=== PATIENT | female | born 1955 | race Caucasian/White ===

== ENCOUNTER 2016-06-28 19:17 | Observation (INO) | payer MEDICARE, BC ==
[~2016-06-28] VITALS: Ht 170.2 cm; Wt 82.2 kg
--- NOTE | ~2016-06-28 | HP ---
PATIENT'S NAME: NIKKI ROYAL [facility] AGE: 60 Y [address] ROOM: [place] [address] LOCATION: GPCU ADMIT DATE: 06/28/2016 History & Physical DISCHARGE DATE: FAMILY PHYSICIAN: Charla Sanchez MD ATTENDING PHYSICIAN: JOANA CAMPOS V DATE OF SERVICE: CHIEF COMPLAINT: Not feeling well and fever. HISTORY OF PRESENT ILLNESS: The patient is a 60-year-old female with past medical history of breast cancer, status post mastectomy in 2009 with chemotherapy back then as well, who has mets to her lumbar spine, who was restarted on chemotherapy with Taxotere and Herceptin approximately 10 days ago. The patient presented to the ER today with complaints of generalized malaise as well as unquantified fever at home. In the ER, she was found to have a fever of 103 and an absolute neutrophil count of 200 (0.2). She denies any chest pain, shortness of breath, productive cough, nausea, vomiting, diarrhea, or dysuria. Her only real symptom is fatigue and fever. REVIEW OF SYSTEMS: All systems have been reviewed and are negative except pertinent positives mentioned above. PAST MEDICAL HISTORY: As per HPI. In addition, she has a past medical history of hypercholesterolemia, depression, and hypertension. PAST SURGICAL HISTORY: Significant for prior mastectomy. CURRENT MEDICATIONS: 1. Metoprolol. 2. Crestor. 3. Pristiq. SOCIAL HISTORY: Negative for any toxic habits. FAMILY HISTORY: Reviewed and is noncontributory due to known underlying etiology for her presentation. PATIENT'S NAME: NIKKI ROYAL [facility] AGE: 60 Y [address] ROOM: [place] [address] LOCATION: GPCU ADMIT DATE: 06/28/2016 History & Physical DISCHARGE DATE: FAMILY PHYSICIAN: Charla Sanchez MD ATTENDING PHYSICIAN: JOANA CAMPOS V PHYSICAL EXAMINATION: VITAL SIGNS: Blood pressure is 123/69, temperature 102.7, pulse is 128, respirations are 16, and saturating 92% on room air. GENERAL APPEARANCE: A well-developed, well-nourished, middle-aged female, in no acute distress, nontoxic. NEUROLOGICAL: Nonfocal. EYES: Pupils are equal and reactive to lightheadedness. LYMPHATIC: No cervical lymphadenopathy. ENDOCRINE: No thyromegaly. LUNGS: Clear to auscultation. HEART: Regular rate and rhythm. ABDOMEN: Soft, nontender, nondistended. : No costovertebral angle tenderness. VASCULAR: 2+ pedal pulses. MUSCULOSKELETAL: No muscle or joint abnormalities. SKIN: Significant for a clean-appearing port sites in the left upper thorax. PSYCHIATRIC: Appropriate mood, cognition, and affect. LABORATORY DATA: Studies are significant for a lactate of 2.1. Unremarkable metabolic profile. Negative cardiac enzymes. CBC with white count of 2.5, platelets of 194, hemoglobin of 12.5, and absolute neutrophil count is 200. She has 2% bands. Urinalysis is unremarkable. Chest x-ray is unremarkable. ASSESSMENT AND PLAN: This is a 60-year-old female who will be admitted with, 1. Febrile neutropenia. Given recent chemotherapy and quite depressed neutrophil count, we will put the patient on neutropenia precautions. We will start her on broad-spectrum antibiotics with vancomycin and Zosyn. Cultures have been drawn in the ER, and we will follow those up. 2. History of breast cancer with neutropenia. We will request a Hematology consult to follow on possible Neupogen. The patient has had Neupogen in the past. 3. Hypertension. At this point, we will hold on her antihypertensives given her possible acute infection. 4. Hypercholesterolemia. We will hold off on her lipid-lowering agents. 5. Deep venous thrombosis prophylaxis will be instituted if the patient stays in the hospital for more than 48 hours. Additional management will depend on clinical course. Time dedicated to the patient's encounter is 35 minutes. PATIENT'S NAME: NIKKI ROYAL [facility] AGE: 60 Y [address] ROOM: [address] [address] [facility] ADMIT DATE: 06/28/2016 History & Physical DISCHARGE DATE: FAMILY PHYSICIAN: Charla Sanchez MD ATTENDING PHYSICIAN: JOANA CAMPOS MD AVK/ivanna /[id number] D: [id number] T: [id number] HISTORY & PHYSICAL
--- NOTE | ~2016-06-28 | ER ---
PATIENT'S NAME: NIKKI ROYAL [facility] AGE: 60 Y [address] ROOM: [place] [address] LOCATION: GPCU ADMIT DATE: 06/28/2016 ER/Outpatient Report DISCHARGE DATE: FAMILY PHYSICIAN: Charla Sanchez MD ATTENDING PHYSICIAN: JOANA CAMPOS V Time of Arrival: 1917 hours. Time of Evaluation: 1958 hours. IDENTIFICATION: A 60-year-old female. CHIEF COMPLAINT: Fever. HISTORY OF PRESENT ILLNESS: The patient is a 60-year-old female with a history of breast cancer, followed by Dr. Knutson. Her initial breast cancer was diagnosed in 2009, treated with bilateral mastectomy and chemotherapy, with bone metastasis, and was again started on chemotherapy, received her first dose of Taxol and Herceptin 1 week ago. She did not receive her Doxil at this time. Today, she has a fever of 103 at home. She denies any other symptoms. No dysuria. No increased frequency of urination. She has some chronic back pain and metastatic lesions in the spine. She has no dysuria. No cough. No shortness of breath. No skin rashes. No abdominal pain, nausea, or vomiting. PAST MEDICAL HISTORY: ALLERGIES: TO LEVAQUIN, CAUSES A RASH AND CONTRAST DYE. CURRENT MEDICATIONS: 1. Nexium 40 mg q.a.m. 2. Pristiq 50 mg q.a.m. 3. Potassium 20 mEq q.a.m. 4. Hydrochlorothiazide 12.5 mg q.a.m. 5. Toprol-XL 25 mg q.p.m. 6. Crestor 20 mg q.p.m. 7. Restasis eyedrops. 8. Compazine p.r.n. 9. Doxil every 4 weeks. 10. Zometa every 4 weeks. 11. Percocet p.r.n. 12. Multivitamin. 13. Calcium. PATIENT'S NAME: NIKKI ROYAL [facility] AGE: 60 Y [address] ROOM: [place] [address] LOCATION: GPCU ADMIT DATE: 06/28/2016 ER/Outpatient Report DISCHARGE DATE: FAMILY PHYSICIAN: Charla Sanchez MD ATTENDING PHYSICIAN: KAGANAS,JOANA V 14. B complex. Add magnesium, aspirin, and Imodium p.r.n. MEDICAL PROBLEMS: Infiltrating lobular breast cancer with bone metastasis, hypertension, and hyperlipidemia. PRIOR SURGERIES: Bilateral mastectomy and cervical fusion. SOCIAL HISTORY: The patient is , lives here in [place]. She is retired. Tobacco use, denies. Alcohol use, denies. Drug use, denies. REVIEW OF SYSTEMS: All systems reviewed and negative other than what is noted in the HPI. FAMILY HISTORY: Grandmother with colon cancer. Father with coronary artery disease, status post bypass surgery in his 70s. PHYSICAL EXAMINATION: VITAL SIGNS: Height 5 feet 7 inches, weight 84 kg. Blood pressure 123/69, pulse 128, respirations 16, temperature 102.7, and saturations 92% on room air. GENERAL: A 60-year-old female, in no acute distress. HEENT: Head: Normocephalic, atraumatic. Ears: TMs translucent, both ears. Nose: Mucosa pink. No lesions or drainage. Mouth: No lesions. Pharynx benign. NECK: Supple. No lymphadenopathy. No nuchal rigidity. LUNGS: Clear to auscultation. Breath sounds are equal. No rhonchi, wheezes, or rales. HEART: Regular rate and rhythm. No murmur, rub, or gallop. ABDOMEN: Bowel sounds present. Soft, nondistended. No hepatosplenomegaly. No palpable masses. Nontender. SKIN: [place], warm, and dry. No lesions or rashes noted. The patient has a port in her left upper chest, no surrounding erythema or tenderness. No lower extremity edema. No calf tenderness. LABORATORY DATA AND X-RAYS: Two-view chest x-ray: Port-A-Cath in place in the left chest. No cardiomegaly. Lung patterson essentially clear, although she does maybe have a little hazy bibasilar infiltrate, pending Radiology over-read. UA: Specific gravity 1.010, pH 7, 0 to 2 white cells, negative red cells. Urine culture PATIENT'S NAME: NIKKI ROYAL [facility] AGE: 60 Y [address] ROOM: [place] [address] LOCATION: GPCU ADMIT DATE: 06/28/2016 ER/Outpatient Report DISCHARGE DATE: FAMILY PHYSICIAN: Charla Sanchez MD ATTENDING PHYSICIAN: JOANA CAMPOS V pending. Hemoglobin 12.5, hematocrit 38.1, platelets 194, white count 2.5 with an absolute neutrophil count of 200, 5% segs, 2% bands. INR 1.01. Procalcitonin elevated at 1.05. Sodium 137, potassium 3.8, chloride 102, CO2 of 24, BUN 15, creatinine 1.1, blood sugar 155, AST 45, CPK 96, CK-MB less than 0.5, troponin I less than 0.010. EKG: Sinus tachycardia at 115 beats per minute. Poor anterior R-wave progression. Nonspecific ST-T wave changes. No EKG available for comparison. Lactate 2.1. Saline was started at 150 mL/h. Blood cultures x2 were drawn peripherally and one from her port. IMPRESSION AND PLAN: 1. Neutropenic fever with sepsis. The patient is hemodynamically stable. IV fluids have been initiated, but her blood pressures have been greater than 110 systolic. IV antibiotics were initiated to include Zosyn and vancomycin. Dr. Campos has been consulted for a hospitalist admission, and he did evaluate her here in the emergency room. 2. Breast cancer, currently undergoing chemotherapy. The patient does have bone metastasis. All other medical problems per the past medical history. Due to the patient's bone pain, she does take Percocet for pain and Percocet was given here in the emergency room x1. CALLUM ZAPATA MD CAR/modl /[id number] d: 06/29/16 0542 t: 06/30/16 0142, OUTPATIENT REPORT
[2016-06-28 20:40] LABS: HEMATOCRIT 38.1 % (33.0-46.0); HEMOGLOBIN 12.5 g/dL (10.0-15.0); MCH 28.4 pg (27.0-34.0); MCHC 32.8 gm/dL (32.0-36.5); MCV 86.6 fl (83.0-98.0); MPV 9.7 fl (9.4-12.4); PLATELET COUNT 194 K/uL (150-450); RDW-CV 16.8 % (11.9-14.6); WBC 2.5 K/uL (4.0-11.0)
[2016-06-28 20:50] LABS: INR - (THERAPEUTIC) 1.01 (0.92-1.07); PROTIME 10.6 SECONDS (9.8-11.4); PTT 28 SECONDS (25-32)
[2016-06-28 21:01] LABS: ALBUMIN 3.1 gm/dL (3.5-5.0); ALK PHOS 104 IU/L (33-138); ALT 54 IU/L (12-78); ANION GAP 14.8 (10.0-19.0); AST 45 IU/L (10-40); BLOOD UREA NITROGEN 15 mg/dL (6-24); CALCIUM 8.5 mg/dL (8.5-10.5); CHLORIDE 102 mMol/L (96-110); CO2 24 mMol/L (22-32); CPK 96 IU/L (21-215); CREATININE 1.1 mg/dL (0.5-1.1); ESTIMATED GFR (MDRD EQUATION) 50; POTASSIUM 3.8 mMol/L (3.7-5.1); SODIUM 137 mMol/L (135-145); TOTAL BILIRUBIN 1.3 mg/dL (0.0-1.5); TOTAL PROTEIN 7.5 g/dL (6.0-8.4)
[2016-06-28 21:19] LABS: BILIRUBIN URINE NEGATIVE (NEGATIVE); BLOOD URINE NEGATIVE /UL (NEGATIVE); GLUCOSE URINE NEGATIVE (NEGATIVE); KETONE URINE NEGATIVE (NEGATIVE); LEUKOCYTES URINE 25 /UL (NEGATIVE); NITRITE URINE NEGATIVE (NEGATIVE); PROTEIN URINE 30 mg/dL (NEGATIVE); UROBILINOGEN URINE 1 mg/dL (NORMAL)
[2016-06-28 21:26] LABS: ABSOLUTE NEUTROPHIL CT (ANC) 0.2 K/uL (1.8-7.8); BANDED NEUTROPHIL # 0.1 K/uL (0.0-0.1); BANDED NEUTROPHILS % 2 %; LYMPHOCYTE # 1.2 K/uL (0.8-4.0); LYMPHOCYTE % 47 %; MONOCYTE # 1.1 K/uL (0.0-1.0); SEGMENTED NEUTROPHIL # 0.1 K/uL (1.8-7.8); SEGMENTED NEUTROPHIL % 5 %
[2016-06-28 21:29] LABS: COLOR URINE YELLOW (YELLOW); TURBIDITY URINE CLEAR (CLEAR)
[2016-06-28 21:41] LABS: BACTERIA URINE NEGATIVE (NEGATIVE); EPITHELIAL URINE RARE #/HPF (NEGATIVE); MUCUS URINE NEGATIVE (NEGATIVE); RBC URINE NEGATIVE #/HPF (NEGATIVE); WBC URINE 0-2 #/HPF (NEGATIVE)
[2016-06-28] MEDS ORDERED: NEXIUM40 MG PO (23:31)
[2016-06-28] MEDS ORDERED: PRISTIQ 50 MG E50 MG PO (23:31)
[2016-06-28] MEDS ORDERED: K-TAB 10MEQ10 MEQ PO (23:32)
[2016-06-28] MEDS ORDERED: HYDRODIURIL12.5 MG PO (23:35)
[2016-06-28] MEDS ORDERED: TOPROL XL25 MG PO (23:35)
[2016-06-28] MEDS ORDERED: CRESTOR20 MG PO (23:35)
[2016-06-28] MEDS ORDERED: PERCOCET 5-3251 EACH PO (23:37)
[2016-06-28] MEDS ORDERED: COMPAZINE10 MG PO (23:37)
[2016-06-28] MEDS ORDERED: RESTASIS MULTI5.5 ML OPHTH (23:37)
[2016-06-28] MEDS ORDERED: DAILY MULTIPLE1 EAC1 PO (23:38)
[2016-06-28] MEDS ORDERED: CALCIUM + VITA1 EACH PO (23:39)
[2016-06-28] MEDS ORDERED: ALIGN4 MG PO (23:40)
[2016-06-28] MEDS ORDERED: B COMPLEX1 EACH PO (23:40)
[2016-06-28] MEDS ORDERED: MAG-OX-400(241400 MG PO (23:42)
[2016-06-28] MEDS ORDERED: ASPIRIN LO-DOSE81 MG PO (23:43)
[2016-06-28] MEDS ORDERED: IMODIUM2 MG PO (23:44)
--- NOTE | 2016-06-29 01:23 | NUR ---
PATIENT ARRIVED TO PCU AROUND 2245 FROM ER. PATIENT PRESENTED TO ER THIS EVENING WITH C/O OF A 103.0 TEMP. PATIENT A/0X3. SBA UP TO BR. 100.0 TEMP UPON ARRIVAL TO THE FLOOR. HR 110'S. 95 % ON RA. 106/55. STILL HAVING C/O OF BACK PAIN. PATIENT WAS PREVIOUSLY MEDICATED IN THE ER BEFORE COMING UP. DOCTOR SAW PATIENT IN ER AND WROTE ORDERS. TO FOLLOW SEPSIS ORDERS. START IV ZOSYN AND VANCO.
--- NOTE | 2016-06-29 04:01 | NUR ---
Significant Event: A/0X3. RESTED IN BED ALL OF SHIFT. TURNS SELF. SBA UP TO BR. HAD A MAX TEMP OF 100.0 UPON ARRIVAL TO THE FLOOR. TYLENOL GIVEN AROUND 2337 AND PATIENT HAS BEEN AFEBRILE SINCE.VSS ON RA. PERCOCET GIVEN AT 2230 FOR CHRONIC BACK PAIN. PATIENT WAS ABLE TO FIND SOME RELIEF AND REST OFF AND ON THROUGHOUT THE SHIFT. IV TO L) CHEST HAS NS @ 100 ML/H RUNNING. STARTED IV VANCO AND ZOSYN. VOIDS FINE. NO BM THIS SHIFT. Follow up: CONTINUE WITH PLAN OF CARE. NEED A SPUTUM CULTURE.
[2016-06-29 04:55] LABS: ANION GAP 9.5 (10.0-19.0); BLOOD UREA NITROGEN 13 mg/dL (6-24); CALCIUM 8.6 mg/dL (8.5-10.5); CHLORIDE 108 mMol/L (96-110); CO2 27 mMol/L (22-32); CREATININE 0.9 mg/dL (0.5-1.1); ESTIMATED GFR (MDRD EQUATION) > 60; MAGNESIUM 2.2 mg/dL (1.8-2.6); PHOSPHORUS 3.4 mg/dL (2.5-4.9); POTASSIUM 3.5 mMol/L (3.7-5.1); SODIUM 141 mMol/L (135-145)
[2016-06-29 05:05] LABS: HEMATOCRIT 34.9 % (33.0-46.0); HEMOGLOBIN 11.3 g/dL (10.0-15.0); MCH 28.4 pg (27.0-34.0); MCHC 32.4 gm/dL (32.0-36.5); MCV 87.7 fl (83.0-98.0); MPV 9.9 fl (9.4-12.4); PLATELET COUNT 168 K/uL (150-450); RBC 3.98 M/uL (3.50-5.50); RDW-CV 16.9 % (11.9-14.6)
[2016-06-29 06:03] LABS: ABSOLUTE NEUTROPHIL CT (ANC) 0.2 K/uL (1.8-7.8); LYMPHOCYTE # 1.8 K/uL (0.8-4.0); LYMPHOCYTE % 60 %; MONOCYTE # 0.9 K/uL (0.0-1.0); SEGMENTED NEUTROPHIL # 0.2 K/uL (1.8-7.8); SEGMENTED NEUTROPHIL % 8 %
--- NOTE | 2016-06-29 16:16 | NUR ---
Significant Event:Patient has been afebrile today. Up in room. Overall feeling better. Percocet twice for c/o chronic back pain. Appetite pretty good. Clarified home medications. Started on Lovenox. Neutropenic precautions. Follow up:Continue IV antibiotics
[2016-06-30 02:35] LABS: ALBUMIN 2.4 gm/dL (3.5-5.0); ANION GAP 8.8 (10.0-19.0); BLOOD UREA NITROGEN 15 mg/dL (6-24); CALCIUM 8.5 mg/dL (8.5-10.5); CHLORIDE 112 mMol/L (96-110); CO2 26 mMol/L (22-32); CREATININE 0.8 mg/dL (0.5-1.1); ESTIMATED GFR (MDRD EQUATION) > 60; PHOSPHORUS 2.9 mg/dL (2.5-4.9); POTASSIUM 3.8 mMol/L (3.7-5.1); SODIUM 143 mMol/L (135-145)
[2016-06-30 02:48] LABS: HEMATOCRIT 32.7 % (33.0-46.0); HEMOGLOBIN 10.3 g/dL (10.0-15.0); MCH 28.5 pg (27.0-34.0); MCHC 31.5 gm/dL (32.0-36.5); MCV 90.6 fl (83.0-98.0); MPV 10.9 fl (9.4-12.4); PLATELET COUNT 168 K/uL (150-450); RBC 3.61 M/uL (3.50-5.50); RDW-CV 16.9 % (11.9-14.6); WBC 3.9 K/uL (4.0-11.0)
--- NOTE | 2016-06-30 03:09 | NUR ---
Significant Event: A/0X3. UP AB KARL IN ROOM. TURNS SELF. AFEBRILE. VSS ON RA. PERCOCET GIVEN X1. LAST DOSE WAS AT 2006. PATIENT WAS ABLE TO FIND RELIEF AND REST OFF AND ON THROUGHOUT THE SHIFT. PORT TO L) CHEST WITH NS @ 100 ML/H. CONTINUE WITH IV ANTIBIOTICS. VOIDS FINE. NO BM THIS SHIFT. Follow up: CONTINUE WITH PLAN OF CARE.
[2016-06-30 04:14] LABS: ABSOLUTE NEUTROPHIL CT (ANC) 0.7 K/uL (1.8-7.8); BANDED NEUTROPHIL # 0.1 K/uL (0.0-0.1); BANDED NEUTROPHILS % 2 %; LYMPHOCYTE # 2.1 K/uL (0.8-4.0); MONOCYTE # 0.9 K/uL (0.0-1.0); SEGMENTED NEUTROPHIL # 0.6 K/uL (1.8-7.8); SEGMENTED NEUTROPHIL % 15 %
[2016-06-30 04:15] LABS: LYMPHOCYTE % 53 %
[2016-06-30] MEDS ORDERED: PROTONIX40 MG PO (12:04)
[2016-06-30] MEDS ORDERED: CLEOCIN150 MG PO (12:12)
--- NOTE | 2016-06-30 13:37 | NUR ---
Introduced self and care management services to patient. Lives in [place] with spouse. Going home today. Denies concerns about going home on discharge, spouse will assist at home as needed. Will follow.
--- NOTE | 2016-06-30 14:22 | NUR ---
PATIENT A&O THIS SHIFT. NO C/O N/V/D. STATES SHE HAS CHRONIC BACK PAIN BUT IT IS TOLERABLE, DENIES NEED FOR PAIN MEDICATION. PATIENT HAS MORNING DOSE OF ZOSYN AND HAD MAINTENANCE FLUIDS RUNNING AT 100ML/HR NS UP UNTIL D/C. UP AMBULATING AD KARL, TOLERATES ACTIVITY WELL. PORT WAS FLUSHED WITH 10ML NS AND 5ML OF HEPARIN THEN WAS DEACCESSED AND SITE COVERED WITH A BANDAGE. PATIENT D/C FROM HOSPITAL AND TAKEN BY WHEELCHAIR TO PRIVATE CAR.
--- NOTE | 2016-07-02 13:02 | NUR ---
Post hospitalization follow up call made to patient. She reports that she is very tired, however, feels she is doing "better". She has no questions regarding her medications or follow up appointments. She see Dr. Knutson on July 10 and it will then be determined if she will continue with chemotherapy. Patient felt her hospitaization went well.
== END 2016-06-30 13:25 | disposition disaster alternative care site (69) ==
LOC: GMED 19:17 → GPCU 21:53
PROVIDERS: Family Medicine; ADMIT Internal Medicine
DX: D70.9 Neutropenia, unspecified (principal); R50.81 Fever presenting with conditions classified elsewhere; R65.10 Systemic inflammatory response syndrome (SIRS) of non-infectious origin without acute organ dysfunction; C79.51 Secondary malignant neoplasm of bone; I10 Essential (primary) hypertension; E78.00 Pure hypercholesterolemia, unspecified; F32.9 Major depressive disorder, single episode, unspecified; Z90.10 Acquired absence of unspecified breast and nipple; Z85.3 Personal history of malignant neoplasm of breast; Z88.1 Allergy status to other antibiotic agents
CPT/HCPCS: G0378; J1642; J1650; J2543; J3370; J7030

== ENCOUNTER → 2016-08-22 | Outpatient (CLI) | payer BC, MEDICARE ==
[~2016-08-22] MED LIST: ALIGN4 MG PO; ASPIRIN LO-DOSE81 MG PO; ATIVAN 0.5MG0.5 MG SL; B COMPLEX1 EACH PO; CALCIUM + VITA1 EACH PO; CLEOCIN150 MG PO; COMPAZINE10 MG PO; CRESTOR20 MG PO; DAILY MULTIPLE1 EAC1 PO; DECADRON4 MG PO; HYDRODIURIL12.5 MG PO; IMODIUM2 MG PO; K-TAB 10MEQ10 MEQ PO; LEVSIN/SL0.125 MG SL; MAG-OX-400(241400 MG PO; MORPHINE 20MG/ML PO/SUBLING; NEXIUM40 MG PO; PERCOCET 5-3251 EACH PO; PRISTIQ 50 MG E50 MG PO; PROTONIX40 MG PO; RESTASIS MULTI5.5 ML OPHTH; TOPROL XL25 MG PO
== END | disposition disaster alternative care site (69) ==
LOC: GRAD 13:38
DX: R51 Headache (principal); R11.0 Nausea; R26.81 Unsteadiness on feet
CPT/HCPCS: A9577

== ENCOUNTER → 2016-08-25 | Outpatient (CLI) | payer BC, MEDICARE | END | disposition disaster alternative care site (69) | LOC: GKIC 10:03 | DX: C50.511 Malignant neoplasm of lower-outer quadrant of right female breast (principal); C79.51 Secondary malignant neoplasm of bone; D64.81 Anemia due to antineoplastic chemotherapy; M54.14 Radiculopathy, thoracic region; D61.810 Antineoplastic chemotherapy induced pancytopenia; D70.8 Other neutropenia; E87.6 Hypokalemia; R11.2 Nausea with vomiting, unspecified | CPT/HCPCS: A9552 ==

== ENCOUNTER 2016-08-29 11:20 | Day surgery (SDC) | payer BC, MEDICARE ==
[~2016-08-29] VITALS: Ht 170.2 cm; Wt 81.0 kg
--- NOTE | ~2016-08-29 | OR ---
PATIENT'S NAME: NIKKI ROYAL [facility] AGE: 61 Y [address] ROOM: [place] [address] LOCATION: [facility] ADMIT DATE: 08/29/2016 OR/Procedure Report DISCHARGE DATE: 08/30/2016 FAMILY PHYSICIAN: Charla Sanchez MD ATTENDING PHYSICIAN: Mireya Pond SURGEON: Mireya Pond MD PRODUCTION LINE WORKER: Gris Covarrubias. DATE OF PROCEDURE: 08/29/2016 PREOPERATIVE DIAGNOSIS: Meningeal carcinomatosis. POSTOPERATIVE DIAGNOSIS: Meningeal carcinomatosis. PROCEDURE PERFORMED: Placement of right-sided Ommaya reservoir. ANESTHESIA: General. HISTORY: The patient is a 61-year-old female with metastatic breast cancer to the meninges. The patient's oncologist requested an Ommaya reservoir to assist with intrathecal chemotherapy. I saw the patient in the clinic and I went over the procedure, benefits, and risks with her. With her consent, she was brought to the operating room for surgery. PROCEDURE IN DETAIL: In the operating room, the patient was placed in a supine position. Anesthesia was induced and she was intubated. The hair on the right side of her head was clipped. The entry point for the Ommaya reservoir was marked out at 12.5 cm behind the right midpupillary line. A horseshoe incision was made with this landmark in the middle. The whole area was prepped and draped in a sterile fashion. Local anesthesia was infiltrated. The #10 blade was used to open the scalp. The scalp flap was held back. Meridian hole was placed and the dura was coagulated. The dura was incised. The ventricular catheter was inserted and the ventricle was accessed at first try. Spinal fluid was retrieved. Spinal fluid was blood tinged. Spinal fluid was sent for appropriate tests as requested by the oncologist. The Ommaya reservoir was then attached to the ventricular catheter, which had been trimmed to a length of 6 cm. The catheter and the reservoir were tied together. The incision was then closed with appropriate suture materials and a sterile dressing was applied. The patient's anesthesia was reversed. She was extubated and taken to the recovery room to complete her recovery. I was present for and performed the entire procedure, assisted at different stages by operating room nurses. There were no apparent intraoperative complications. Swabs, needles, and instruments were all accounted for at the end of the case. Estimated blood loss was less than 10 mL. There was no reason for blood transfusion. Postoperative CT scan confirmed that the catheter was in the correct position in the frontal horn of the left lateral PATIENT'S NAME: NIKKI ROYAL [facility] AGE: 61 Y [address] ROOM: [place] [address] LOCATION: [facility] ADMIT DATE: 08/29/2016 OR/Procedure Report DISCHARGE DATE: 08/30/2016 FAMILY PHYSICIAN: Charla Sanchez MD ATTENDING PHYSICIAN: Mireya Pond ventricle. The catheter should now be available for use. MIREYA POND MD CNO/modl /[id number] CC: Claribel Knutson MD d: 09/02/16 2342 t: 09/03/16 1948, OPERATIVE SUMMARY
[~2016-08-29 11:20] MED LIST changes: -ATIVAN 0.5MG0.5 MG SL; -DECADRON4 MG PO; -LEVSIN/SL0.125 MG SL; -MORPHINE 20MG/ML PO/SUBLING
--- NOTE | 2016-08-29 13:32 | NUR ---
PATIENT REPORTS HAVING LESS PAIN AFTER RX GIVEN. RATES A 4 NOW WHEN IT WAS A 6 EARLIER. PAIN REPORTED IN MIDDLE BACK
--- NOTE | 2016-08-30 04:53 | NUR ---
Pt. alert and oriented. VSS. RA. SBA. Regular diet. Pt. pulled IV out at end of shift. States is going home and does not want another IV before d/c. Dressing on top of head from resevoir placed yesterday. No issues. Gave 2 tabs percocet x1 around 0000. Pt. did not sleep much but said this was normal. Took shower at 0430. Plans to discharge today but needs teaching on how to care for resevoir.
[2016-08-30] MEDS ORDERED: DECADRON4 MG PO (11:36)
--- NOTE | 2016-08-30 12:46 | NUR ---
Educated on medications, followup appointments, blood clots. IV had been accidentally d/c'd by patient in the night. Taken by wheelchair to main lobby for discharge home with family with all personal belongings.
== END 2016-08-30 12:39 | disposition disaster alternative care site (69) ==
LOC: GMSU 11:20 → GSDC 11:20
PROC: 00H603Z Insertion of Infusion Device into Cerebral Ventricle, Open Approach (ICD-10-PCS; principal; 2016-08-29)
DX: C79.32 Secondary malignant neoplasm of cerebral meninges (principal); C50.911 Malignant neoplasm of unspecified site of right female breast; I25.10 Atherosclerotic heart disease of native coronary artery without angina pectoris; F32.9 Major depressive disorder, single episode, unspecified; H04.123 Dry eye syndrome of bilateral lacrimal glands; K21.9 Gastro-esophageal reflux disease without esophagitis; E78.5 Hyperlipidemia, unspecified; E04.1 Nontoxic single thyroid nodule; N19 Unspecified kidney failure; F41.9 Anxiety disorder, unspecified; E78.00 Pure hypercholesterolemia, unspecified; I10 Essential (primary) hypertension; Z90.13 Acquired absence of bilateral breasts and nipples; Z98.890 Other specified postprocedural states; Z79.82 Long term (current) use of aspirin; Z79.899 Other long term (current) drug therapy; Z91.041 Radiographic dye allergy status; Z88.1 Allergy status to other antibiotic agents
CPT/HCPCS: J0690; J1100; J2001; J2250; J2405; J3010; J7030

== ENCOUNTER → 2016-09-02 | Outpatient (CLI) | payer BC, MEDICARE ==
[~2016-09-02] MED LIST changes: +ATIVAN 0.5MG0.5 MG SL; +DECADRON4 MG PO; +LEVSIN/SL0.125 MG SL; +MORPHINE 20MG/ML PO/SUBLING
== END | disposition disaster alternative care site (69) ==
LOC: GRAD 15:00
DX: C50.511 Malignant neoplasm of lower-outer quadrant of right female breast (principal); C79.51 Secondary malignant neoplasm of bone; D64.81 Anemia due to antineoplastic chemotherapy; M54.14 Radiculopathy, thoracic region; D61.810 Antineoplastic chemotherapy induced pancytopenia; E87.6 Hypokalemia; R11.2 Nausea with vomiting, unspecified; Z98.890 Other specified postprocedural states; M47.892 Other spondylosis, cervical region; M48.02 Spinal stenosis, cervical region; M51.24 Other intervertebral disc displacement, thoracic region; M47.897 Other spondylosis, lumbosacral region
CPT/HCPCS: A9577

== ENCOUNTER 2016-09-07 08:55 | Inpatient (IN) | payer MEDICARE, BC ==
[~2016-09-07] VITALS: Ht 172.7 cm; Wt 78.9 kg
--- NOTE | ~2016-09-07 | CON ---
PATIENT'S NAME: NIKKI ROYAL [facility] AGE: 61 Y [address] ROOM: [place] [address] LOCATION: [facility] ADMIT DATE: 09/07/2016 Consultation DISCHARGE DATE: FAMILY PHYSICIAN: Charla Sanchez MD ATTENDING PHYSICIAN: Mireya Reinoso DATE OF CONSULTATION: 09/08/2016 REFERRING PHYSICIAN: Mireya Reinoso MD LOCATION: [place] [address]. REASON: This is a palliative care referral for end-of-life cares and transitioning to home with hospice. HISTORY OF PRESENT ILLNESS: This 61-year-old female was brought into the emergency room on 09/07 with decreased level of consciousness and declining. She has a known history of metastatic breast cancer with metastasis to the bone when diagnosed 7 years ago, was treated for her breast cancer, started having more back pain, went back in, was checked out. She had extensive leptomeningeal involvement as a result of her metastatic breast cancer with metastasis to the brain. She had an Ommaya reservoir placed on August 29 and had 2 doses of intrathecal chemotherapy from her Ommaya reservoir. After second treatment, the patient had started becoming more dizzy and declining overall. She had been declining over the last 3 months with decreased appetite, back pain, and some nausea after the first treatment. Currently, the patient is unresponsive. Opens eyes, but no response to verbal or tactile stimuli. No grimacing or moaning noted. She is n.p.o. No nausea or vomiting. Unknown last bowel movement. PAST MEDICAL HISTORY: Breast cancer, history of GERD, hyperlipidemia, depression, and nonocclusive coronary artery disease. HOME MEDICATIONS: 1. Nexium. 2. Pristiq. 3. Hydrochlorothiazide. 4. Crestor. 5. Compazine. 6. Zometa. PATIENT'S NAME: NIKKI ROYAL [facility] AGE: 61 Y [address] ROOM: [place] [address] LOCATION: [facility] ADMIT DATE: 09/07/2016 Consultation DISCHARGE DATE: FAMILY PHYSICIAN: Charla Sanchez MD ATTENDING PHYSICIAN: Mireya Reinoso 7. Percocet. 8. Calcium. 9. Recently started on methotrexate. ALLERGIES: LEVAQUIN. SOCIAL HISTORY: She is , retired. She has one son and one daughter. Son lives in [place]. Daughter lives by [place]. No history of alcohol, tobacco, or illicit drug use. FAMILY HISTORY: Father had heart disease. Mother had Alzheimer's. Sister had cervical cancer. Brother at the age of 72, and another brother had spinal stenosis. PAST SURGICAL HISTORY: PowerPort implant, Ommaya reservoir on 08/29/2016, right mastectomy, left mastectomy, and cervical disk fusion. REVIEW OF SYSTEMS: A complete review of systems was done and is negative except as mentioned in the HPI. PHYSICAL EXAMINATION: GENERAL: This is a 61-year-old female in no acute distress. She is 5 feet 8 inches and weighs 173 pounds with a BMI of 26.4. GENERAL: Unresponsive, in no acute distress. HEENT: Head is normocephalic, shaved. Sutures intact around Ommaya reservoir on the top of head. No redness. No erythema or drainage noted. Sclerae are nonicteric. Conjunctivae are pale, pink. Mouth is pink and moist without exudate. LYMPHATIC: No cervical adenopathy or thyromegaly. RESPIRATORY: Clear to auscultation bilaterally. Breath sounds even and regular throughout. CARDIAC: S1 and S2, without murmurs or bruits. No lower extremity edema. ABDOMEN: Soft and nontender. Positive bowel tones. No hepatosplenomegaly. NEUROLOGIC: Unresponsive, not following commands. MUSCULOSKELETAL: No joint deformities. EXTREMITIES: No cyanosis or deformities. Palliative Performance Scale is about 10%, totally bed-bound, unable to do any activity, total care, mouth care only, and conscious level is coma. IMPRESSION: PATIENT'S NAME: NIKKI ROYAL [facility] AGE: 61 Y [address] ROOM: [place] [address] LOCATION: [facility] ADMIT DATE: 09/07/2016 Consultation DISCHARGE DATE: FAMILY PHYSICIAN: Charla Sanchez MD ATTENDING PHYSICIAN: Mireya Reinoso 1. Back pain. 2. Altered level of consciousness. PLAN: 1. Met with Vadim, daughter Lisette, and son Kevyn and his Alivia. Discussed the patient's overall condition, prognosis, and hospice. Answered questions and concerns. 2. Goals of care. would like to take the patient home with hospice as soon as possible today. He wants the patient to be as comfortable as possible. 3. Discussed support systems in place. [facility] escrow representative will be up to talk with family around 1115 hours to help set up plan of transitioning back home. Discussed that the patient may have to go per ambulance due to being unresponsive. understands. 4. Code status and advance directive. The patient is do not resuscitate/do not intubate. A copy of advance directive is on the chart. 5. Recommendations: Pain, the patient has been taking morphine 2 mg IV x2 in the last 12 hours, Roxanol 20 mg/mL 5 mg p.o., script will be sent home with the patient. Should be sufficient in managing pain. Emotionalsupport given to family. Answered all questions and concerns. Discussed with daycare teacher, PIPER Aleman, on possible ambulance transfer home approximately at 1530 hours. [facility] will arrange getting equipment in place. Comfort care orders were signed and faxed back to [facility]. Thank you for allowing me to assist this patient and family. Total time was 60 minutes, with 55 minutes for counseling and coordination of care. ELSA LYMAN NP FOR MD STEPHEN MOLINA/ivanna /[id number] d: 09/08/16 1506 t: 09/10/16 1558, CONSULTATION REPORT
--- NOTE | ~2016-09-07 | HP ---
PATIENT'S NAME: NIKKI RODGERS [facility] AGE: 61 Y [address] ROOM: [place] [address] LOCATION: [facility] [place] ADMIT DATE: 09/07/2016 History & Physical DISCHARGE DATE: FAMILY PHYSICIAN: Charla Sanchez MD ATTENDING PHYSICIAN: Mireya Pond DATE OF SERVICE: 09/07/2016 PATIENT IDENTIFICATION: Nikki Rodgers is a 61-year-old female. PRESENTING COMPLAINT: Decreased responsiveness. HISTORY OF PRESENT ILLNESS: The patient has had decreased level of consciousness since yesterday afternoon. The family brought her to the ER today. She had a head CT scan done and it showed hydrocephalus, see below. I was therefore consulted to see the patient. The patient is known to have metastatic breast cancer to the brain. She has extensive leptomeningeal involvement. As a result of the metastatic breast cancer to the brain, the patient had an Ommaya reservoir placed on August 29, 2016. She has had two doses of intrathecal chemotherapy from the Ommaya reservoir. She has been having worsening dizziness over the last 3 months as well as headache. PAST MEDICAL HISTORY: Significant for the said breast cancer. She also has a history of gastroesophageal reflux disease, hyperlipidemia, depression, nonocclusive coronary artery disease. CURRENT MEDICATIONS: Nexium, Pristiq, hydrochlorothiazide, Crestor, Compazine, Zometa, Percocet, calcium, and recently started on methotrexate. ALLERGIES: LEVAQUIN. SOCIAL HISTORY: The patient is . She is retired. She does not use tobacco or alcohol or street drugs. PATIENT'S NAME: NIKKI RODGERS [facility] AGE: 61 Y [address] ROOM: [place] [address] LOCATION: [facility] [place] ADMIT DATE: 09/07/2016 History & Physical DISCHARGE DATE: FAMILY PHYSICIAN: Charla Sanchez MD ATTENDING PHYSICIAN: Mireya Pond FAMILY HISTORY: There is no family history relevant to present problems. REVIEW OF SYSTEMS: Unable to obtain review of systems, as the patient is currently not responsive enough to provide one. PHYSICAL EXAMINATION: GENERAL: The patient is a middle-aged white female, who was seen in the ER. VITAL SIGNS: Blood pressure 147/78, pulse rate 91. NEUROLOGICAL: The patient was very drowsy when I saw her. It took a bit of effort to get her to open her eyes to voice. She did not follow command, but did not have any verbal response. Cranial nerves unable to assess, but no gross deficits seen. Motor examination unable to assess. BREATHING: The patient is breathing spontaneously on her own. CARDIOVASCULAR: Heart sounds are present. EXTREMITIES: No cyanosis or clubbing. HEAD: There is a fresh Ommaya reservoir incision on the top of her head. EYES, EARS, NOSE, and THROAT: No evidence of trauma. REVIEW OF IMAGING STUDIES: The patient had a recent head CT scan performed this morning. The CT scan shows worsening of the known hydrocephalus, although the patient has been diagnosed with. There is no bleeding or midline shift. ASSESSMENT: A 61-year-old female with hydrocephalus secondary to metastatic breast cancer, presenting with decreased level of responsiveness. MEDICAL DECISION MAKING: I discussed the situation with the patient's family. I presented to them options of either doing a spinal tap to relieve the hydrocephalus temporarily, a ventriculoperitoneal shunt for the hydrocephalus, again this will be temporary with possibility of spreading malignant cells to the abdomen. Another option was Comfort Care is accepting that this was a terminal event. After discussions among themselves, the patient's family opted for comfort care. The patient is being admitted for comfort care at this time. She is also do not resuscitate. MIREYA POND MD PATIENT'S NAME: NIKKI RODGERS [facility] AGE: 61 Y [address] ROOM: [place] [address] LOCATION: [facility] [place] ADMIT DATE: 09/07/2016 History & Physical DISCHARGE DATE: FAMILY PHYSICIAN: Charla Sanchez MD ATTENDING PHYSICIAN: Mireya Pond/ivanna /[id number] CC: MD Claribel Noguera MD D: [id number] T: [id number] HISTORY & PHYSICAL
--- NOTE | ~2016-09-07 | ER ---
PATIENT'S NAME: NIKKI ROYAL [facility] AGE: 61 Y [address] ROOM: [place] [address] LOCATION: [facility] [place] ADMIT DATE: 09/07/2016 ER/Outpatient Report DISCHARGE DATE: FAMILY PHYSICIAN: Charla Sanchez MD ATTENDING PHYSICIAN: Mireya Reinoso Time of arrival: 0855 hours. Time of evaluation: 0855 hours. CHIEF COMPLAINT: Unresponsive. HISTORY OF PRESENT ILLNESS: The patient is a 61-year-old female, who presents to the emergency department today with a chief complaint of unresponsiveness. The patient does have a history of metastatic breast cancer with METS to the bone as well as a recent diagnosis of carcinomatosis and meningitis. The patient recently underwent Ommaya implantation by Dr. Reinoso. She did receive intrathecal methotrexate, last dose was on 09/04/2016. Per , the patient's symptoms has progressively worsened over the past 24-36 hours. She has become less and less responsive. denies any fevers or chills. No nausea or vomiting. No diarrhea or constipation. No chest pain. No shortness of breath. Upon EMS arrival, the patient was noted to be hypoxic with a room air oxygen saturation of 85%. PAST MEDICAL HISTORY: Breast cancer with metastasis, carcinomatosis, meningitis, hypertension, dyslipidemia, mastectomy, cervical fusion. SOCIAL HISTORY: The patient is , lives in [place], retired. Denies any tobacco, alcohol, or illicit drug use. ALLERGIES: TO LEVAQUIN WHICH CAUSES A RASH WELL CONTRAST DYE. MEDICATIONS: 1. Nexium. 2. Pristiq. 3. Potassium. 4. Hydrochlorothiazide. 5. Toprol-XL. 6. Crestor. 7. Restasis. 8. Compazine. PATIENT'S NAME: NIKKI ROYAL [facility] AGE: 61 Y [address] ROOM: [place] [address] LOCATION: [facility] [place] ADMIT DATE: 09/07/2016 ER/Outpatient Report DISCHARGE DATE: FAMILY PHYSICIAN: Charla Sanchez MD ATTENDING PHYSICIAN: Mireya Reinoso 9. Doxil. 10. Zometa. 11. Percocet. 12. Multivitamin. 13. Calcium. 14. B complex. REVIEW OF SYSTEMS: All systems are unable to be reviewed due to the patient's unresponsive condition at this time. PHYSICAL EXAMINATION: VITAL SIGNS: Weight 79.2 kg. Blood pressure 147/78, pulse 91, respiratory rate 14, temperature 98.7, oxygen saturation 95% on 2 L nasal cannula. GENERAL: The patient is a 61-year-old female, who is minimally responsive, maintaining her own airway. HEENT: Head: Normocephalic, atraumatic. Pupils are 3 mm and reactive. She does have lateral gaze to the left. Oropharynx is dry. The patient does have Ommaya pump noted with sutures in place at the top of the scalp. NECK: Supple. There is no nuchal rigidity. CARDIOVASCULAR: Regular rate and rhythm. LUNGS: Clear to auscultation bilaterally. ABDOMEN: Soft, nontender, and nondistended. No rebound, rigidity, or guarding. MUSCULOSKELETAL: The patient does not move extremities. Her upper extremities are with some contracture noted at the wrist and some fasciculation type movements. NEUROLOGICAL: GCS of E2, V1, Motor 5. Does not follow commands. Downward going toes. No clonus. SKIN: Warm and dry. LABORATORY DATA AND X-RAYS: Labs and x-rays are obtained. CT scan of the brain is obtained. I have discussed the results with the radiologist. It does show obstructive hydrocephalus with moderate ventriculomegaly, appears to be from compression of 4th ventricle, likely metastatic progression, progressive from one month prior. Chest x-ray shows patchy bilateral lung opacifications, probably atelectasis with no evidence of failure or definitive pneumonia. CBC is unremarkable except for platelet 145, proBNP is 172. Venous blood gas 7.43/39/56/26/1.5. Lactate is 1.5, procalcitonin 0.36. Coags are normal. CMP is unremarkable except for potassium 3.2. LFTs normal. CK is normal. Cardiac enzymes are normal. EKG is obtained, is interpreted by myself at 09:32 shows sinus rhythm with a rate of 90, normal axis, normal interval. No ST elevation or ST depression. Nonspecific T-waves. Urinalysis shows 30 protein, 5 ketones, rare WBCs, negative RBCs, epithelials, and bacteria. PATIENT'S NAME: NIKKI ROYAL [facility] AGE: 61 Y [address] ROOM: [address] [address] LOCATION: [facility] [place] ADMIT DATE: 09/07/2016 ER/Outpatient Report DISCHARGE DATE: FAMILY PHYSICIAN: Charla Sanchez MD ATTENDING PHYSICIAN: Mireya Reinoso IMPRESSION: 1. Obstructive hydrocephalus with moderate ventriculomegaly from compression of the 4th ventricle, likely progressive metastatic disease. 2. Breast cancer with metastasis to bone and brain. 3. Altered mental status due to #1. 4. Initial visit. EMERGENCY DEPARTMENT COURSE: The patient was brought back to the examination room. Seen and evaluated by myself immediately upon arrival. The patient's port is accessed. She is given a liter of normal saline. Laboratory analysis and imaging are obtained as described above. The results of the imaging and laboratory analysis are obtained. I have discussed results with the family. I have contacted Dr. Reinoso with Neurosurgery. He has seen and evaluated the patient down here in the emergency department. After discussion with Dr. Reinoso, the patient's family does wish to make the patient comfort care. The patient will be admitted for palliative care. DISPOSITION: The patient is admitted under the care Dr. Reinoso in guarded condition. DO JUAN MANUEL DAY/benitol /[id number] d: 09/07/16 1621 t: 09/08/16 1608, OUTPATIENT REPORT
[~2016-09-07 08:55] MED LIST changes: -ATIVAN 0.5MG0.5 MG SL; -LEVSIN/SL0.125 MG SL; -MORPHINE 20MG/ML PO/SUBLING
[2016-09-07 09:24] LABS: BASOPHIL % 0.1 %; BICARBONATE 25.9 mmol/L (18.0-23.0); EOSINOPHIL % 0.1 %; IMMATURE GRANULOCYTE % 0.3 %; LACTATE 1.5 mEq/L (0.50-1.60); LYMPHOCYTE # 0.5 K/uL (0.8-4.0); LYMPHOCYTE % 4.6 %; MCH 30.8 pg (27.0-34.0); MCV 93.6 fl (83.0-98.0); MONOCYTE # 0.4 K/uL (0.0-1.0); MONOCYTE % 3.3 %; MPV 9.4 fl (9.4-12.4); NEUTROPHIL # (ANC) 9.7 K/uL (1.8-7.8); NEUTROPHIL % 91.6 %; NRBC % 0 /100WBC (0-0.00); PCO2 39 mmHg (35-45); PLATELET COUNT 145 K/uL (150-450); PO2 56 mmHg (80-90); RBC 4.22 M/uL (3.50-5.50); WBC 10.6 K/uL (4.0-11.0)
[2016-09-07 09:28] LABS: HEMATOCRIT 39.5 % (33.0-46.0); MCHC 32.9 gm/dL (32.0-36.5); RDW-CV 19.6 % (11.9-14.6)
[2016-09-07 09:49] LABS: ALBUMIN 3.1 gm/dL (3.5-5.0); ALK PHOS 74 IU/L (33-138); ALT 43 IU/L (12-78); ANION GAP 12.2 (10.0-19.0); AST 40 IU/L (10-40); BLOOD UREA NITROGEN 17 mg/dL (6-24); CALCIUM 8.3 mg/dL (8.5-10.5); CHLORIDE 110 mMol/L (96-110); CO2 23 mMol/L (22-32); CPK 82 IU/L (21-215); CREATININE 0.6 mg/dL (0.5-1.1); ESTIMATED GFR (MDRD EQUATION) > 60; POTASSIUM 3.2 mMol/L (3.7-5.1); SODIUM 142 mMol/L (135-145); TOTAL BILIRUBIN 1.7 mg/dL (0.0-1.5); TOTAL PROTEIN 6.3 g/dL (6.0-8.4)
[2016-09-07 10:03] LABS: BILIRUBIN URINE NEGATIVE (NEGATIVE); BLOOD URINE NEGATIVE /UL (NEGATIVE); COLOR URINE YELLOW (YELLOW); GLUCOSE URINE NEGATIVE (NEGATIVE); KETONE URINE 5 mg/dL (NEGATIVE); LEUKOCYTES URINE NEGATIVE /UL (NEGATIVE); NITRITE URINE NEGATIVE (NEGATIVE); PROTEIN URINE 30 mg/dL (NEGATIVE); TURBIDITY URINE CLEAR (CLEAR); UROBILINOGEN URINE NORMAL (NORMAL)
[2016-09-07 10:10] LABS: BACTERIA URINE NEGATIVE (NEGATIVE); EPITHELIAL URINE NEGATIVE #/HPF (NEGATIVE); MUCUS URINE 1+ (NEGATIVE); RBC URINE NEGATIVE #/HPF (NEGATIVE); WBC URINE RARE #/HPF (NEGATIVE)
[2016-09-07 10:16] LABS: INR - (THERAPEUTIC) 0.95 (0.92-1.07); PTT 22 SECONDS (25-32)
[2016-09-08] MEDS ORDERED: MORPHINE 20MG/ML PO/SUBLING (15:05)
[2016-09-08] MEDS ORDERED: ATIVAN 0.5MG0.5 MG SL (15:06)
[2016-09-08] MEDS ORDERED: LEVSIN/SL0.125 MG SL (15:07)
== END 2016-09-08 15:25 | disposition hospice, home (50) | DRG 56 ==
LOC: GMED 08:55 → GMSU 11:37
PROVIDERS: Emergency Medicine; ADMIT Neurological Surgery
DX: G91.1 Obstructive hydrocephalus (principal); G93.49 Other encephalopathy; C79.31 Secondary malignant neoplasm of brain; C79.51 Secondary malignant neoplasm of bone; C50.919 Malignant neoplasm of unspecified site of unspecified female breast; I25.10 Atherosclerotic heart disease of native coronary artery without angina pectoris; E78.5 Hyperlipidemia, unspecified; K21.9 Gastro-esophageal reflux disease without esophagitis; F32.9 Major depressive disorder, single episode, unspecified; Z51.5 Encounter for palliative care; Z66 Do not resuscitate
CPT/HCPCS: J2270; J7030

== ENCOUNTER → 2016-09-07 | Outpatient (CLI) | payer BC, MEDICARE | END | disposition disaster alternative care site (69) | LOC: GAMB 08:39 | DX: C50.919 Malignant neoplasm of unspecified site of unspecified female breast (principal); C79.51 Secondary malignant neoplasm of bone; C79.31 Secondary malignant neoplasm of brain; R40.20 Unspecified coma; Z79.891 Long term (current) use of opiate analgesic; Z79.899 Other long term (current) drug therapy | CPT/HCPCS: A0422; A0425; A0427 ==

== ENCOUNTER → 2016-09-08 | Outpatient (CLI) | payer BC, MEDICARE ==
[~2016-09-08] MED LIST changes: +ATIVAN 0.5MG0.5 MG SL; +LEVSIN/SL0.125 MG SL; +MORPHINE 20MG/ML PO/SUBLING
== END | disposition disaster alternative care site (69) ==
LOC: GAMB 15:12
DX: C50.919 Malignant neoplasm of unspecified site of unspecified female breast (principal); R40.20 Unspecified coma
CPT/HCPCS: A0425; A0428